=== PATIENT | female | born 1945 | race American Indian/Alaskan Native ===

== ENCOUNTER 2017-02-19 08:50 | Outpatient (CLI) | payer MEDICARE ==
--- NOTE | 2017-02-19 13:01 | Mammography Report ---
BILATERAL MAMMOGRAM: FINDINGS: The breast tissue is heterogeneously dense, which could obscure detection of small masses (approximately 50%-75% glandular). No mass, distortion, suspicious calcification, or skin change is seen. No significant change when compared to exams back to 2015. CAD was not captured. IMPRESSION: Negative mammogram. There is no mammographic evidence of malignancy. RECOMMENDATION: Follow-up per ACS guidelines. BI-RADS CATEGORY: 1 = Negative ACR BI-RADS MAMMOGRAPHIC CODES: 0 = Needs additional imaging evaluation; 1 = Negative; 2 = Benign; 3 = Probably benign; 4 = Suspicious; 5 = Malignant; 6 = Known biopsy-proven malignancy COMMENT: 1. Dense breast tissue, i.e., adenosis, fibrocystic changes, etc., may obscure an underlying neoplasm. 2. Approximately 10% of cancers are not detected with mammography. 3. A negative mammography report should not delay biopsy if a clinically suspicious mass is present. COMMENT: Patient follow-up letters are generated in [id number].
== END 2017-02-19 08:51 | disposition home or self-care (01) ==
LOC: MAMMO 08:50
PROVIDERS: ATTEND Internal Medicine
DX: Z12.31 Encounter for screening mammogram for malignant neoplasm of breast (principal)
CPT/HCPCS: 77067; G0202

== ENCOUNTER 2020-04-16 10:56 | Emergency (ER) | payer MEDICARE ==
[2020-04-16] MEDS ORDERED: MINERAL OIL/PETROLATUM, WHITE OPHTH OINT 3.5 GM OU PRN (11:01)
[2020-04-16] MEDS ORDERED: LIP THERAPY VASELINE TP PRN (11:01)
[2020-04-16 11:03] VITALS: BP 54/32
--- NOTE | 2020-04-16 11:15 | Emergency Department Report ---
ED CPR HPI - General Chief Complaint: Cardiac Arrest/CPR Stated Complaint: CARDIAC ARREST Time Seen by Provider: 04/16/20 10:59 Source: EMS Mode of arrival: Stretcher Limitations: Altered Mental Status, Other - History of Present Illness Initial Comments: CC: cardiac arrest HPI: This is a 74 yo female with hx of thyroid cancer who presents in cardiac arrest. Patient was found to be unresponsive by daughter. EMS was called. Family member did not performed CPR. Initial rhytm asystole. After 3 doses of epinephrine, ETT intubation, rhythm changed to PEA. Upon arrival patient has palpable carotid and femoral pulses. MD Complaint: found unresponsive, stopped breathing Place: home Bystander CPR Performed: No Initial Findings in the Field: unresponsive ROSC in the Field: Yes Associated Injuries: No Treatments Prior to Arrival: intubation, epinephrine mgs # (3 doses of epinephrine) - Related Data Allergies Allergy/AdvReac Type Severity Reaction Status Date / Time No Known Allergies Allergy Unverified 01/23/14 12:07 ED Review of Systems ROS: Stated complaint: CARDIAC ARREST Other details as noted in HPI Comment: Unobtainable due to pts medical conditions ED Past Medical Hx - Past Medical History Previous Medical History?: Yes Additional medical history: Thyroid cancer - Surgical History Additional Surgical History: Unable to be obtained due to patient's condition - Family History Family history: other (Unable to be obtained due to patient's condition) - Social History Smoking Status: Smoker, Current Status Unknown Substance Use Type: Other (Unable to be obtained due to patient's condition) ED Physical Exam - General Limitations: Altered Mental Status, Other General appearance: cachectic (Appears chronically ill cachectic), other (Lifeless eyes open no spontaneous movement) - Head Head exam: Present: atraumatic, normocephalic - Eye Eye exam: Present: other (Dried cornea has fixed dilated pupils) - ENT ENT exam: Present: mucous membranes dry, other (Pale mucosa ETT in place) - Neck Neck exam: Present: other (Large mass anterior neck) - Respiratory Respiratory exam: Present: other (Equal breath sounds with ventilation, no spontaneous respirations) - Cardiovascular Cardiovascular Exam: Present: regular rate, normal rhythm, normal heart sounds, other (Palpable radial femoral pulses 2+) - GI/Abdominal GI/Abdominal exam: Present: soft. Absent: distended - Extremities Exam Extremities exam: Present: other (Cachectic extremities without deformity without signs of trauma) - Neurological Exam Neurological exam: Present: other (Lifeless no spontaneous movement) - Psychiatric Psychiatric exam: Present: other (Lifeless no spontaneous movement) - Skin Skin exam: Present: pallor ED Course Vital Signs 04/16/20 04/16/20 04/16/20 10:59 11:03 11:06 Pulse Rate 57 L 0 L Respiratory 18 18 Rate Blood Pressure 54/32 O2 Sat by Pulse 94 Oximetry ED Medical Decision Making - Medical Decision Making Upon arrival patient was receiving chest compressions and ventilation through ETT per paramedics. As we received patient in acupressurist report, medical staff detected carotid femoral pulse. Patient was placed on ventilator. Shortly thereafter loss of spontaneous circulation then ensued. Further resuscitation deemed to be futile Considering extensive resuscitation according to ACLS algorithm time of 1105 Critical care attestation.: If time is entered above; I have spent that time in minutes in the direct care of this critically ill patient, excluding procedure time. ED Disposition Clinical Impression: Cardiac arrest, Thyroid cancer Disposition: DC-20 Is pt being admited?: No Does the pt Need Aspirin: No Condition: Stable Time of Disposition: 11:05
== END 2020-04-16 11:30 ==
LOC: ED 10:56
DX: I46.9 Cardiac arrest, cause unspecified (principal); C79.89 Secondary malignant neoplasm of other specified sites
CPT/HCPCS: 92950; 94002